=== PATIENT | female | born 1940 | race Caucasian/White ===

== ENCOUNTER → 2017-05-09 | Outpatient (CLI) | payer MEDICARE, OTHER | END | disposition home or self-care (01) | LOC: HKI 13:47 | DX: Z01.818 Encounter for other preprocedural examination (principal) | CPT/HCPCS: G0463 ==

== ENCOUNTER 2017-05-13 10:24 | Inpatient (IN) | payer MEDICARE, OTHER ==
[2017-05-13] MEDS: LACTATED RINGER'S 1,000 ML IV (07:00)
[~2017-05-13 10:24] MED LIST: CEFAZOLIN 2 GM/50 ML (PMX) 50 ML (FOR WT < 120 KG) IVPB; TRANEXAMIC ACID 1,000 MG in D5W 100 ML AT CLOSURE X1 IVPB; TRANEXAMIC ACID 1,000 MG in D5W 100 ML AT INCISION X1 IVPB
[2017-05-13] MEDS: ACETAMINOPHEN 1000MG/100ML IV 100 ML IVPB (11:03)
[2017-05-13] MEDS: ONDANSETRON 4 MG INJ IV ×2 (11:04→20:19)
[2017-05-13] MEDS: DEXAMETHASONE 4 MG/ML 1 ML INJ IV (11:05)
[2017-05-13] MEDS: LANSOPRAZOLE 30 MG CAP PO (11:05)
[2017-05-13] MEDS ORDERED: MIDAZOLAM 1 MG/ML 2 ML INJ (16:36)
[2017-05-13] MEDS: BACITRACIN 50000 UNITS INJ (17:02)
[2017-05-13] MEDS: POLYMYXIN B 500000 UNIT INJ (17:02)
[2017-05-13] MEDS ORDERED: ETOMIDATE 20 MG INJ (18:52)
[2017-05-13] MEDS ORDERED: LIDOCAINE 100 MG SYRINGE (18:52)
[2017-05-13] MEDS ORDERED: ONDANSETRON 4 MG INJ (18:55)
[2017-05-13] MEDS ORDERED: CEFAZOLIN 1 GM INJ (18:55)
[2017-05-13] MEDS ORDERED: ROPIVACAINE 0.5 % 30 ML VIAL (19:01)
[2017-05-13] MEDS ORDERED: oxyCODONE 5 MG TAB PO ×2 (19:30)
[2017-05-13] MEDS ORDERED: BETHANECHOL 25 MG TAB PO (19:30)
[2017-05-13] MEDS ORDERED: NALOXONE (0.4 MG/ML) INJ IV ×2 (19:30→20:00)
[2017-05-13] MEDS ORDERED: MAGNESIUM HYDROXIDE 30ML CUP PO (19:30)
[2017-05-13] MEDS ORDERED: BISACODYL 10 MG SUPP PR (19:30)
[2017-05-13] MEDS ORDERED: KETOROLAC 15 MG INJ IV (19:30)
[2017-05-13] MEDS ORDERED: NA PHOSPHATE/BIPHOS 133 ML ENEMA PR (19:30)
[2017-05-13] MEDS ORDERED: SENNA/DOCUSATE NA (8.6MG/50MG) TAB PO (19:30)
[2017-05-13] MEDS ORDERED: DIPHENHYDRAMINE 50 MG INJ IM (19:30)
[2017-05-13] MEDS ORDERED: ZOLPIDEM 5 MG TAB PO (19:30)
[2017-05-13] MEDS ORDERED: LABETALOL HCL 20MG INJ IV (20:00)
[2017-05-13] MEDS ORDERED: ONDANSETRON 4 MG INJ IV (20:00)
[2017-05-13] MEDS ORDERED: FENTAnyl 50 MCG/ML VIAL IV (20:00)
[2017-05-13] MEDS ORDERED: MEPERIDINE 25 MG INJ IV (20:00)
[2017-05-13] MEDS ORDERED: hydrALAzine 20 MG INJ IV (20:00)
[2017-05-13] MEDS ORDERED: METOCLOPRAMIDE 10 MG INJ IV (20:00)
[2017-05-13] MEDS ORDERED: HYDROmorphONE (0.2 MG/ML) 10ML SYG IV (20:00)
[2017-05-13] MEDS: CEFAZOLIN 1 GM/50 ML (PMX) 50 ML IVPB (20:18)
[2017-05-13] MEDS: ASPIRIN (EC) 325 MG TAB PO (20:19)
[2017-05-13] MEDS: DOCUSATE SODIUM 100 MG CAP PO (20:19)
[2017-05-13] MEDS: DIPHENHYDRAMINE 50 MG INJ IV (21:50)
[2017-05-13] MEDS: HYDROmorphONE (0.2 MG/ML) 10ML SYG IV (21:50)
[2017-05-13] MEDS: SOD CHLORIDE 0.9% 1,000 ML IV (21:51)
[2017-05-13] MEDS: GABAPENTIN 100 MG CAP PO (23:00)
[2017-05-14] MEDS: ONDANSETRON 4 MG INJ IV ×3 (01:44→13:30)
[2017-05-14] MEDS: ZOLPIDEM 5 MG TAB PO (01:44)
[2017-05-14] MEDS: CEFAZOLIN 1 GM/50 ML (PMX) 50 ML IVPB ×2 (02:39→12:15)
[2017-05-14] MEDS: oxyCODONE 5 MG TAB PO ×2 (03:43→12:13)
[2017-05-14 05:32] LABS: ADD MAN DIFF? NO
[2017-05-14 05:33] LABS: BASOPHILS % 0.2 % (0.0-2.0); HEMATOCRIT 31.8 % (37.0-47.0); LYMPHOCYTES # 1.4 10^3/ul (0.8-2.9); LYMPHOCYTES % 12.2 % (15.0-51.0); MEAN CORPUSCULAR HEMOGLOBIN 31.5 pg (29.0-33.0); MEAN CORPUSCULAR HGB CONC 34.6 g/dl (32.0-37.0); MEAN CORPUSCULAR VOLUME 91.1 fl (82.0-101.0); MEAN PLATELET VOLUME 10.6 fl (7.4-10.4); MONOCYTE # 0.9 10^3/ul (0.3-0.9); MONOCYTES % 7.8 % (0.0-11.0); NEUTROPHIL # 9.2 10^3/ul (1.6-7.5); NEUTROPHILS % 79.5 % (39.0-77.0); PLATELET COUNT 314 10^3/UL (140-415); RED BLOOD COUNT 3.49 10^6/ul (4.20-5.40); RED CELL DISTRIBUTION WIDTH 13.3 % (11.5-14.5)
[2017-05-14 05:33] LABS: WHITE BLOOD COUNT 11.6 10^3/ul (4.8-10.8)
[2017-05-14 05:56] LABS: ANION GAP 14 (8-16); CARBON DIOXIDE 25 mmol/L (21-31); CHLORIDE 108 mmol/L (97-110); GLUCOSE 130 mg/dl (70-220)
[2017-05-14] MEDS: LEVOTHYROXINE 50 MCG TAB PO (06:13)
[2017-05-14 06:19] LABS: BLOOD UREA NITROGEN 13 mg/dl (7-20); CALCIUM 8.6 mg/dl (8.4-10.2); CREATININE 0.83 mg/dl (0.44-1.00); POTASSIUM 3.8 mmol/L (3.5-5.1); SODIUM 143 mmol/L (135-144)
[2017-05-14] MEDS: SOD CHLORIDE 0.9% 1,000 ML IV (07:38)
[2017-05-14] MEDS: GABAPENTIN 300 MG CAP PO (08:13)
[2017-05-14] MEDS: CHOLECALCIFEROL 1,000 UNIT TAB PO (08:14)
[2017-05-14] MEDS: DOCUSATE SODIUM 100 MG CAP PO ×2 (08:14→20:23)
[2017-05-14] MEDS: GABAPENTIN 100 MG CAP PO ×2 (08:14→20:23)
[2017-05-14] MEDS: HYDROCHLOROTHIAZIDE 12.5 MG CAP PO (08:15)
[2017-05-14] MEDS: METOPROLOL (XL) 50 MG TAB PO (08:17)
[2017-05-14] MEDS: ATENOLOL 25 MG TAB PO (08:17)
[2017-05-14] MEDS: LOSARTAN 50 MG TAB PO (08:23)
[2017-05-14] MEDS: AMLODIPINE 10 MG TAB PO (08:24)
[2017-05-14] MEDS: FERROUS FUMARATE (SR) TAB PO ×2 (08:24→20:23)
[2017-05-14] MEDS ORDERED: NON-FORMULARY/PATIENT OWN MED (Linaclotide (Linzess) 290 MCG) PO (09:00)
[2017-05-14] MEDS: ASPIRIN (EC) 325 MG TAB PO ×2 (09:00→12:14)
[2017-05-14] MEDS: TOLTERODINE (SR) 4 MG CAP PO ×2 (09:00→12:14)
[2017-05-14] MEDS: RALOXIFENE 60 MG TAB PO ×2 (09:00→12:15)
[2017-05-14] MEDS: DONEPEZIL 10 MG TAB PO (09:00)
[2017-05-14] MEDS ORDERED: clonAZEPAM 0.5 MG TAB PO (09:00)
[2017-05-14] MEDS: CELECOXIB 100 MG CAP PO ×2 (09:00→20:26)
[2017-05-14] MEDS: POTASSIUM CHLORIDE (SR) 8 MEQ CAP PO ×2 (09:00→12:14)
[2017-05-14] MEDS: HALOPERIDOL 5 MG INJ IM (10:00)
[2017-05-14] MEDS: LORAZEPAM 2 MG INJ IV (16:25)
[2017-05-14] MEDS: ATORVASTATIN 20 MG TAB PO (20:23)
[2017-05-14] MEDS: QUETIAPINE 25 MG TAB PO (20:28)
[2017-05-14] MEDS: HYDROCODONE/APAP (5/325) TAB PO (21:00)
[2017-05-15] MEDS: HYDROCODONE/APAP (5/325) TAB PO (03:42)
[2017-05-15 05:40] LABS: ADD MAN DIFF? NO
[2017-05-15 05:44] LABS: WHITE BLOOD COUNT 8.5 10^3/ul (4.8-10.8)
[2017-05-15 05:44] LABS: BASOPHILS % 0.4 % (0.0-2.0); EOSINOPHILS # 0.1 10^3/ul (0.0-0.5); EOSINOPHILS % 1.6 % (0.0-7.0); HEMATOCRIT 29.7 % (37.0-47.0); HEMOGLOBIN 10.1 g/dl (12.0-16.0); LYMPHOCYTES # 2.3 10^3/ul (0.8-2.9); LYMPHOCYTES % 26.8 % (15.0-51.0); MEAN CORPUSCULAR HEMOGLOBIN 31.4 pg (29.0-33.0); MEAN CORPUSCULAR VOLUME 92.2 fl (82.0-101.0); MONOCYTES % 11.4 % (0.0-11.0); NEUTROPHIL # 5.1 10^3/ul (1.6-7.5); NEUTROPHILS % 59.6 % (39.0-77.0); PLATELET COUNT 282 10^3/UL (140-415); RED BLOOD COUNT 3.22 10^6/ul (4.20-5.40); RED CELL DISTRIBUTION WIDTH 13.5 % (11.5-14.5)
[2017-05-15 06:24] LABS: ANION GAP 14 (8-16); BLOOD UREA NITROGEN 15 mg/dl (7-20); CALCIUM 7.7 mg/dl (8.4-10.2); CARBON DIOXIDE 25 mmol/L (21-31); CHLORIDE 103 mmol/L (97-110); CREATININE 0.73 mg/dl (0.44-1.00); GLUCOSE 151 mg/dl (70-220); SODIUM 139 mmol/L (135-144)
[2017-05-15] MEDS: PANTOPRAZOLE (EC) 40 MG TAB PO (06:32)
[2017-05-15] MEDS: LEVOTHYROXINE 50 MCG TAB PO (06:32)
[2017-05-15 06:58] LABS: POTASSIUM 2.9 mmol/L (3.5-5.1)
[2017-05-15] MEDS ORDERED: POTASSIUM CHLORIDE 40 MEQ in DEXTROSE 5% 100 ML IVPB (08:00)
[2017-05-15] MEDS: CELECOXIB 100 MG CAP PO ×2 (09:00→09:31)
[2017-05-15] MEDS: RALOXIFENE 60 MG TAB PO ×2 (09:00→09:31)
[2017-05-15] MEDS: DOCUSATE SODIUM 100 MG CAP PO (09:31)
[2017-05-15] MEDS: GABAPENTIN 300 MG CAP PO (09:31)
[2017-05-15] MEDS: ASPIRIN (EC) 325 MG TAB PO (09:32)
[2017-05-15] MEDS: GABAPENTIN 100 MG CAP PO (09:32)
[2017-05-15] MEDS: TOLTERODINE (SR) 4 MG CAP PO (09:32)
[2017-05-15] MEDS: CHOLECALCIFEROL 1,000 UNIT TAB PO (09:32)
[2017-05-15] MEDS: POTASSIUM CHLORIDE (SR) 8 MEQ CAP PO (09:32)
[2017-05-15] MEDS: FERROUS FUMARATE (SR) TAB PO (09:32)
[2017-05-15] MEDS: DONEPEZIL 10 MG TAB PO ×2 (09:33→09:39)
[2017-05-15] MEDS: POTASSIUM CHLORIDE 50 ML IVPB ×2 (09:59→12:25)
[2017-05-15] MEDS: POTASSIUM CHLORIDE (SR) 20 MEQ TAB PO (10:37)
[2017-05-15] MEDS: AMLODIPINE 10 MG TAB PO (12:26)
[2017-05-15] MEDS: LOSARTAN 50 MG TAB PO (12:26)
[2017-05-15] MEDS: ATENOLOL 25 MG TAB PO (12:27)
[2017-05-15] MEDS: HYDROCHLOROTHIAZIDE 12.5 MG CAP PO (12:27)
[2017-05-15] MEDS: METOPROLOL (XL) 50 MG TAB PO (12:30)
== END 2017-05-15 15:45 | disposition home health service (06) | DRG 468 ==
LOC: REC 10:24 → MS1 05-14 07:28
PROC: 0SRC0JA Replacement of Right Knee Joint with Synthetic Substitute, Uncemented, Open Approach (ICD-10-PCS; principal; 2017-05-13 14:30)
PROC: 0SPC0JZ Removal of Synthetic Substitute from Right Knee Joint, Open Approach (ICD-10-PCS; 2017-05-13 14:30)
DX: T84.84XA Pain due to internal orthopedic prosthetic devices, implants and grafts, initial encounter (principal); I10 Essential (primary) hypertension; E03.9 Hypothyroidism, unspecified; E78.5 Hyperlipidemia, unspecified; Y83.8 Other surgical procedures as the cause of abnormal reaction of the patient, or of later complication, without mention of misadventure at the time of the procedure
CPT/HCPCS: 73560; 80048; 85025; 86850; 86870; 86900; 86901; 86902; 87070; 88300; 97110; 97116; 97163; 97166; 97530; 97535; C1776

== ENCOUNTER → 2017-05-30 | Outpatient (CLI) | payer MEDICARE, OTHER | END | disposition home or self-care (01) | LOC: HKI 13:53 | DX: Z09 Encounter for follow-up examination after completed treatment for conditions other than malignant neoplasm (principal); M25.561 Pain in right knee; R22.41 Localized swelling, mass and lump, right lower limb; Z96.651 Presence of right artificial knee joint | CPT/HCPCS: 73560; 73560-RT ==

== ENCOUNTER → 2017-06-27 | Outpatient (CLI) | payer MEDICARE, OTHER | END | disposition home or self-care (01) | LOC: HKI 14:03 | DX: Z09 Encounter for follow-up examination after completed treatment for conditions other than malignant neoplasm (principal); Z96.651 Presence of right artificial knee joint | CPT/HCPCS: 73560; 73560-RT ==

== ENCOUNTER → 2017-09-08 | Outpatient (CLI) | payer MEDICARE, OTHER | END | disposition home or self-care (01) | LOC: HKI 10:42 | DX: Z47.1 Aftercare following joint replacement surgery (principal); Z96.652 Presence of left artificial knee joint | CPT/HCPCS: 73560; 73560-RT ==